=== PATIENT | male | born 1930 | race Caucasian/White ===

== ENCOUNTER 2017-01-01 11:00 | Emergency (ER) | payer MEDICARE, OTHER ==
[~2017-01-01] VITALS: Ht 180.3 cm; Wt 100.0 kg
[~2017-01-01 11:00] MED LIST: BUFF325T PO; CALC600T44 PO; CARD8TAB6 PO; GABA300C3 PO; GLIM1 PO; LEVO100T4 PO; LIPI10TA PO; MAGN250T5 PO; METF-324 PO; NOVORP2 SQ; TAMS.4 PO; VITA20003 PO; VITA250L PO; [UNRECOGNIZED DRUG - CODE] PO
[2017-01-01 11:06] VITALS: BP 109/69; PULSE 100; RESP 16; TEMP 97.9; O2SAT 97
[2017-01-01] MEDS ORDERED: ASPI325T33 PO (11:42)
[2017-01-01] MEDS ORDERED: ASCO1TAB14 PO (11:42)
[2017-01-01] MEDS ORDERED: CARD8TAB2 PO (11:43)
[2017-01-01] MEDS ORDERED: GABA300C5 PO (11:43)
[2017-01-01] MEDS ORDERED: VITA500T49 PO (11:43)
[2017-01-01] MEDS ORDERED: LEVO100T5 PO (11:43)
[2017-01-01] MEDS ORDERED: METF1000 PO ×2 (11:43)
[2017-01-01] MEDS ORDERED: SITA25 PO (11:43)
[2017-01-01] MEDS ORDERED: CALC600T25 PO (11:43)
[2017-01-01] MEDS ORDERED: ESSE250T PO (11:43)
[2017-01-01] MEDS ORDERED: NRDRIP SQ (11:43)
[2017-01-01] MEDS ORDERED: VITA1000 PO (11:43)
[2017-01-01] MEDS ORDERED: ATOR40TA16 PO (11:43)
--- NOTE | 2017-01-01 12:05 | PD ---
HPI Chief Complaint: Fall Time Seen by Provider: 11:21 Travel History International Travel<30 days: No Contact w/Intl Traveler<30days: No Traveled to known affect area: No History of Present Illness HPI 86yo M with PMH of DM presents to the ED with c/o scalp laceration s/p slip and fall today. Pt was trying to get the motor in his pond and slipped on rocks and hit the right side of his head on rocks. Denies any LOC, chest pain, sob, n /v, abdominal pain, focal weakness or numbness. Pt did feel mild lightheadedness after the fall but currently denies it. Takes aspirin. Denies any anticoagulation. 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) Genitourinary: Yes Hypertension: Yes Immune Disorder: No Neurologic: Yes (peripheral neuropathy) Psychiatric: No Reproductive: No Respiratory: No Immunizations Current: Yes Thyroid Disease: Yes Past Surgical History Abdominal Surgery: Yes (appy) Appendectomy: Yes Genitourinary Surgery: Yes (cysto 79) Other Surgery: Yes Social History Alcohol Use: No Tobacco Use: No Substance Use: No Allergies-Medications (Allergen,Severity, Reaction): Coded Allergies: No Known Allergies (Unverified , 01/01/17) Reported Meds & Prescriptions Reported Meds & Active Scripts Active Reported Magnesium 250 Mg Tab 250 Mg PO DAILY Levothyroxine (Levothyroxine Sodium) 100 Mcg Tab 100 Mcg PO HS Novolin R Inj (Insulin Human Regular) 100 Unit/Ml Inj 10 Unit SQ BID Metformin (Metformin HCl) 1,000 Mg Tab 1,500 Mg PO HS With a meal Januvia (Sitagliptin Phosphate) 25 Mg Tab 25 Mg PO DAILY Metformin (Metformin HCl) 1,000 Mg Tab 1,000 Mg PO DAILY With meals Gabapentin 300 Mg Cap 300 Mg PO HS Cardura (Doxazosin Mesylate) 8 Mg Tab 8 Mg PO HS Vitamin B12 (Cyanocobalamin) 500 Mcg Tab 500 Mcg PO DAILY Vitamin D-1000 (Cholecalciferol) 1,000 Unit Tab 2,000 Units PO DAILY Calcium (Calcium Carbonate) 600 Mg Tab 600 Mg PO DAILY Atorvastatin (Atorvastatin Calcium) 40 Mg Tab 40 Mg PO HS C-1000 (Ascorbic Acid) 1,000 Mg Tablet 1,000 Mg PO DAILY Aspirin EC (Aspirin) 325 Mg Tabdr 325 Mg PO DAILY Review of Systems Except as stated in HPI: all other systems reviewed are Neg Physical Exam Narrative GENERAL: 86yo M not in distress. SKIN: Focused skin assessment warm/dry. HEAD: 9cm right scalp laceration. EYES: Pupils equal and round at 4mm bilaterally. EOMI. No scleral icterus. No injection or drainage. ENT: No nasal bleeding or discharge. Mucous membranes pink and moist. NECK: No midline ttp cervical spine. CARDIOVASCULAR: Regular rate and rhythm. No murmur appreciated. RESPIRATORY: No accessory muscle use. Clear to auscultation. Breath sounds equal bilaterally. GASTROINTESTINAL: Abdomen soft, non-tender, nondistended. MUSCULOSKELETAL: No obvious deformities. No clubbing. No cyanosis. No edema. NEUROLOGICAL: Awake and alert. No obvious cranial nerve deficits. Motor grossly within normal limits. Normal speech. PSYCHIATRIC: Appropriate mood and affect; insight and judgment normal. Data Data Last Documented VS Vital Signs Date Time Temp Pulse Resp B/P Pulse Ox O2 Delivery O2 Flow Rate FiO2 01/01/17 11:06 97.9 100 16 109/[address] Brain W/O Iv Contrast(Rout) (01/01/17 ) Electrocardiogram (01/01/17 ) Blood Glucose (01/01/17 11:33) Lidocaine Pf 1% Inj (Xylocaine-Mpf 1% In (01/01/17 12:15) Tetanus/Diphtheria Tox Adult (Tetanus/Di (01/01/17 12:15) MDM Medical Decision Making Medical Screen Exam Complete: Yes Emergency Medical Condition: Yes Interpretation(s) EKG: Sinus arrhythmia at 73bpm. LAD. QTc 402ms. 1st AV block. Last Impressions Head CT 01/01/17 0000 Signed Impressions: Service Date/Time: Sunday, January 01, 2017 11:42 - CONCLUSION: Normal examination. Reji Pro MD Differential Diagnosis ICH vs. fracture vs. laceration vs. arrhythmia Narrative Course 86yo M with right scalp laceration s/p mechanical fall today. Pt states he felt a little dizzy right after hitting his head but felt better after lying down. Denies any chest pain, sob, or neurologic complaints. CT brain negative. Laceration repaired by my PA. Pt given tetanus. Blood glucose is 314 but pt is refusing any blood work and states that his glucometer at home is accurate. Pt states he will follow up with PMD regarding this. Return precautions given. Diagnosis Primary Impression: Scalp laceration Qualified Code: S01.01XA - Scalp laceration, initial encounter Patient Instructions: General Instructions Departure Forms: Tests/Procedures Additional Instructions: Please have your yousuf removed in the ED or PMD's office in 5-7 days. Please return to the ED if symptoms worsen. Please follow up with your PMD regarding elevated blood glucose. Med/Other Pt SpecificInfo: Prescription(s) given Scripts Acetaminophen (Tylenol)325 Mg Exq719 Mg PO Q6H PRN (PAIN SCALE 1 TO 4) #20 TAB Ref 0 Prov:Lilian Vergara DO 01/01/17 Disposition: 01 DISCHARGE HOME Condition: Stable Lilian Vergara DO Jan 01, 2017 12:05
--- NOTE | 2017-01-01 12:06 | RADRPT ---
EXAM DATE/TIME: 01/01/2017 11:42 [facility] COMPARISON: CT BRAIN W/O CONTRAST, September 03, 2011, 20:39. INDICATIONS : Fall, right frontal laceration. RADIATION DOSE: 61.24 CTDIvol (mGy) MEDICAL HISTORY : Cardiovascular disease. Diabetes mellitus type 2. Hypertension.Peripheral neuropathy. SURGICAL HISTORY : None. ENCOUNTER: Initial ACUITY: 1 day PAIN SCALE: 4/10 LOCATION: Right frontal TECHNIQUE: Multiple contiguous axial images were obtained of the head. Using automated exposure control and adj ustment of the mA and/or kV according to patient size, radiation dose was kept as low as reasonably a chievable to obtain optimal diagnostic quality images. DICOM format image data is available electro nically for review and comparison. FINDINGS: CEREBRUM: The ventricles are normal for age. No evidence of midline shift, mass lesion, hemorrhage or acute in farction. No extra-axial fluid collections are seen. POSTERIOR FOSSA: The cerebellum and brainstem are intact. The 4th ventricle is midline. The cerebellopontine angle i s unremarkable. EXTRACRANIAL: The visualized portion of the orbits is intact. SKULL: The calvaria is intact. No evidence of skull fracture. CONCLUSION: Normal examination. Reji Pro MD on January 01, 2017 at 12:05 Board Certified Radiologist. This report was verified electronically.
[2017-01-01] MEDS ORDERED: TETANUS/DIPHTHERIA TOXOID ADULT 0.5 ML VIAL IM ONE (12:15)
[2017-01-01] MEDS ORDERED: LIDOCAINE HCL 1% PF 30 ML VIAL INFIL ONE (12:15)
--- NOTE | 2017-01-01 12:54 | PD ---
Physical Exam Date Seen by Provider: Jan 01, 2017 Time Seen by Provider: 12:54 Narrative I was asked to perform a laceration repair by Dr. Vergara. Please refer to her note for full history of present illness and details on this patient. Data Data Last Documented VS Vital Signs Date Time Temp Pulse Resp B/P Pulse Ox O2 Delivery O2 Flow Rate FiO2 01/01/17 11:06 97.9 100 16 109/[address] Brain W/O Iv Contrast(Rout) (01/01/17 ) Electrocardiogram (01/01/17 ) Blood Glucose (01/01/17 11:33) Lidocaine Pf 1% Inj (Xylocaine-Mpf 1% In (01/01/17 12:15) Tetanus/Diphtheria Tox Adult (Tetanus/Di (01/01/17 12:15) MDM Medical Record Reviewed: Yes Supervised Visit with JOAO: No Differential Diagnosis Scalp laceration Narrative Course 86-year-old male here with a large right sided frontal scalp laceration. It measures 7.5 cm Patient gave verbal consent to repair. 17 yousuf were placed without incident. Procedures Procedure Narrative LACERATION LOCATION: Right frontal scalp LENGTH: 7.5 cm NUMBER OF STITCHES/YOUSUF: 17 yousuf REPAIR: The area of the laceration was prepped with Betadine and sterilely draped. The laceration was infiltrated with 1% lidocaine. The wound was copiously irrigated with 250 cc saline and explored without evidence of foreign body, tendon injury or neurovascular injury. The wound was closed using yousuf. This was a single layer repair. A sterile dressing was applied. The patient was advised to keep the dressing clean and dry. Patient tolerated the procedure well. Additional Instruction: These 17 yousuf will need to be removed in 5-7 days. Condition: Stable Ivy Barney Jan 01, 2017 12:54
[2017-01-01] MEDS ORDERED: TYLE325T PO (13:26)
[2017-01-01 13:43] VITALS: BP 110/65
--- NOTE | 2017-01-01 15:06 | EKG ---
Date Performed: 01/01/2017 Time Performed: 11:39:07 PTAGE: 86 years EKG: Sinus rhythm WITH MARKED SINUS ARRHYTHMIA BORDERLINE ECG PREVIOUS TRACING : 05/01/2012 14.22 Compared to prior tracing no significant change DOCTOR: Sean Roldan Interpretating Date/Time 01/01/2017 15:04:55
== END 2017-01-01 13:44 | disposition home or self-care (01) ==
LOC: PHED 11:00
DX: S01.01XA Laceration without foreign body of scalp, initial encounter (principal); I10 Essential (primary) hypertension; W01.198A Fall on same level from slipping, tripping and stumbling with subsequent striking against other object, initial encounter; Y93.89 Activity, other specified; Y92.828 Other wilderness area as the place of occurrence of the external cause; Z23 Encounter for immunization
CPT/HCPCS: 12002; 70450; 90471; 90714; 93005